=== PATIENT | male | born 1945 ===

== ENCOUNTER 2018-05-09 21:49 | Emergency (ER) | payer MEDICARE | END 2018-05-09 23:48 | disposition home or self-care (01) | LOC: C.ER 21:49 ==

== ENCOUNTER 2018-05-11 11:04 | Emergency (ER) | payer MEDICARE | END 2018-05-11 14:53 | disposition home or self-care (01) | LOC: C.ER 11:04 ==

== ENCOUNTER 2018-05-17 01:26 | Emergency (ER) | payer MEDICARE ==
[2018-05-17 01:26] VITALS: BMI 24.3
--- NOTE | 2018-05-17 01:39 | C.PDOC ---
History Of Present Illness The patient presents to the ED for evaluation of mid-epigastric abdominal pain which began after eating a nithya earlier today. Patient states his last bowel movement was prior to arrival. He denies nausea, vomiting and diarrhea at this time. Time Seen by Provider: 05/17/18 01:38 Chief Complaint (Nursing): Abdominal Pain History Per: Patient History/Exam Limitations: no limitations Onset/Duration Of Symptoms: Hrs Current Symptoms Are (Timing): Still Present Severity: Mild Pain Scale Rating Of: 2 Location Of Pain/Discomfort: Epigastric (mid) Radiation Of Pain To:: None Quality Of Discomfort: "Pain" Associated Symptoms: denies: Nausea, Vomiting, Diarrhea Exacerbating Factors: None Alleviating Factors: None Last Bowel Movement: Today Recent travel outside of the [place]: No Additional History Per: Patient Past Medical History Reviewed: Historical Data, Nursing Documentation, Vital Signs Vital Signs: Last Vital Signs Temp 98.1 F 05/17/18 01:30 Pulse 63 05/17/18 01:30 Resp 20 05/17/18 01:30 BP 149/87 05/17/18 01:30 Pulse Ox 100 05/17/18 01:30 - Medical History PMH: HTN, Hypercholesterolemia, Hypothyroidism Denies: Chronic Kidney Disease Surgical History: CABG, Coronary Stent - [facility] Procedures ENDO RECTUM POLYPECTOMY (05/16/13) ENDOSC POLYPECTOMY OF LG INTEST (05/16/13) ESOPHAGOGASTRODUODENOSCOPY [EGD] W/CLOSED BIOPSY (06/22/13) REPOSITION ILEUM, OPEN APPROACH (11/19/15) Family History: States: Unknown Family Hx - Social History Hx Tobacco Use: No Hx Alcohol Use: No Hx Substance Use: No - Immunization History Hx Tetanus Toxoid Vaccination: No Hx Influenza Vaccination: No Hx Pneumococcal Vaccination: No Review Of Systems Constitutional: Negative for: Fever, Chills Cardiovascular: Negative for: Chest Pain, Palpitations Respiratory: Negative for: Cough, Shortness of Breath Gastrointestinal: Positive for: Abdominal Pain (mid-epigastric ). Negative for: Nausea, Vomiting, Diarrhea Genitourinary: Negative for: Dysuria, Frequency, Hematuria Musculoskeletal: Negative for: Back Pain Skin: Negative for: Rash, Lesions, Jaundice, Bruising Neurological: Negative for: Weakness, Numbness Physical Exam - Physical Exam Appears: Non-toxic, No Acute Distress Skin: Warm, Dry Head: Normacephalic Oral Mucosa: Moist Neck: Supple Chest: Symmetrical, No Deformity, No Tenderness Cardiovascular: Rhythm Regular, No Murmur Respiratory: No Rales, No Rhonchi, No Wheezing Gastrointestinal/Abdominal: Soft, Tenderness (mild, mid-epigastric ), No Guarding, No Rebound Extremity: Normal ROM, Capillary Refill (less than 2 seconds ) Neurological/Psych: Oriented x3 ED Course And Treatment O2 Sat by Pulse Oximetry: 100 (on RA ) Pulse Ox Interpretation: Normal Progress Note: Toradol IVP and Protonix IVP given. Reevaluation Time: 03:39 Reassessment Condition: Improved Disposition Counseled Patient/Family Regarding: Studies Performed, Diagnosis, Need For Followup, Rx Given - Disposition Referrals: Martín Aggarwal DO [[facility]] - Disposition: HOME/ ROUTINE Disposition Time: 01:39 Condition: FAIR Additional Instructions: Please return if symptoms recur Prescriptions: Pantoprazole Sodium [Protonix] 40 mg PO DAILY #15 ect Instructions: Acid Reflux (Gastroesophageal Reflux Disease), Adult (DC) Forms: [employer] (Persian) - Clinical Impression Clinical Impression: GERD (gastroesophageal reflux disease) - Scribe Statement The provider has reviewed the documentation as recorded by the Scribe (Trudy Cary) Provider Attestation: All medical record entries made by the Scribe were at my direction and personally dictated by me. I have reviewed the chart and agree that the record accurately reflects my personal performance of the history, physical exam, medical decision making, and the department course for this patient. I have also personally directed, reviewed, and agree with the discharge instructions and disposition.
[2018-05-17] MEDS ORDERED: Pantoprazole 40 mg EC Tab PO STA (01:58)
[2018-05-17 03:50] VITALS: BP 162/85; PULSE 64; RESP 18; TEMP 97.9; O2SAT 98
== END 2018-05-17 04:11 | disposition home or self-care (01) ==
LOC: C.ER 01:26
DX: K21.9 Gastro-esophageal reflux disease without esophagitis (principal); I10 Essential (primary) hypertension; E78.00 Pure hypercholesterolemia, unspecified; E03.9 Hypothyroidism, unspecified
CPT/HCPCS: 96374; 96375; 99285; C9113; J1885

== ENCOUNTER 2018-05-19 23:19 | Emergency (ER) | payer MEDICARE ==
[2018-05-19 23:19] VITALS: BMI 24.3
--- NOTE | 2018-05-19 23:52 | C.PDOC ---
History Of Present Illness 73 year old male presents stating he drank hot 7up at 9:30pm and since them he has had mild pain to left lower abdomen around the left umbilicus into the LLQ. He has had multiple ED visits for similar symptoms recently. Nothing makes the pain better or worse, he denies nausea, vomiting, diarrhea, fever, back pain, or urinary symptoms. On 05/11/[address] abd/pel that showed diverticulosis w/o diverticulitis and moderate constipation, he had labs done during two prior recent visits which were normal and had obstructive series that showed constipation. Time Seen by Provider: 05/19/18 23:32 Chief Complaint (Nursing): Abdominal Pain History Per: Patient History/Exam Limitations: no limitations Onset/Duration Of Symptoms: Hrs Current Symptoms Are (Timing): Still Present Location Of Pain/Discomfort: LLQ Radiation Of Pain To:: None Quality Of Discomfort: Unable To Describe Associated Symptoms: denies: Fever, Nausea, Vomiting, Diarrhea, Back Pain, Urinary Symptoms Exacerbating Factors: None Alleviating Factors: None Recent travel outside of the [place]: No Additional History Per: Prior Records Past Medical History Reviewed: Historical Data, Nursing Documentation, Vital Signs Vital Signs: Last Vital Signs Temp 98 F 05/19/18 23:21 Pulse 66 05/19/18 23:21 Resp 16 05/19/18 23:21 BP 150/85 05/19/18 23:21 Pulse Ox 100 05/19/18 23:21 - Medical History PMH: HTN, Hypercholesterolemia, Hypothyroidism Denies: Chronic Kidney Disease Surgical History: CABG, Coronary Stent - [facility] Procedures ENDO RECTUM POLYPECTOMY (05/16/13) ENDOSC POLYPECTOMY OF LG INTEST (05/16/13) ESOPHAGOGASTRODUODENOSCOPY [EGD] W/CLOSED BIOPSY (06/22/13) REPOSITION ILEUM, OPEN APPROACH (11/19/15) Family History: States: Unknown Family Hx - Social History Hx Tobacco Use: No Hx Alcohol Use: No Hx Substance Use: No - Immunization History Hx Tetanus Toxoid Vaccination: No Hx Influenza Vaccination: No Hx Pneumococcal Vaccination: No Review Of Systems Constitutional: Negative for: Fever, Chills Cardiovascular: Negative for: Chest Pain, Palpitations Respiratory: Negative for: Cough, Shortness of Breath Gastrointestinal: Positive for: Abdominal Pain. Negative for: Nausea, Vomiting, Diarrhea Genitourinary: Negative for: Dysuria, Hematuria Musculoskeletal: Negative for: Back Pain Skin: Negative for: Rash Physical Exam - Physical Exam Appears: Non-toxic Skin: Normal Color, Warm Head: Atraumatic, Normacephalic Eye(s): bilateral: Normal Inspection Oral Mucosa: Moist Neck: Normal, Supple Chest: Symmetrical, No Tenderness Cardiovascular: Rhythm Regular Respiratory: Normal Breath Sounds, No Rales, No Rhonchi, No Wheezing Gastrointestinal/Abdominal: Soft, No Tenderness, No Mass, No Distention, No Guarding, No Rebound Neurological/Psych: Oriented x3, Normal Speech ED Course And Treatment - Laboratory Results Result Diagrams: 05/19/18 23:57 05/19/18 23:57 Lab Interpretation: No Acute Changes O2 Sat by Pulse Oximetry: 100 (Room air) Pulse Ox Interpretation: Normal Progress Note: Blood work and urinalysis ordered. Reevaluation Time: 00:52 Reassessment Condition: Improved (Patient remains comfortable.) Disposition Counseled Patient/Family Regarding: Studies Performed, Diagnosis, Need For Fol lowup - Disposition Disposition: HOME/ ROUTINE Disposition Time: 00:58 Condition: STABLE Instructions: Stomach Ache and Stomach Upset, [place] Diet Forms: [employer] (Estonian) - Clinical Impression Clinical Impression: Abdominal pain - Scribe Statement The provider has reviewed the documentation as recorded by the Scribsunny Francis All medical record entries made by the Scribe were at my direction and personally dictated by me. I have reviewed the chart and agree that the record accurately reflects my personal performance of the history, physical exam, medical decision making, and the department course for this patient. I have also personally directed, reviewed, and agree with the discharge instructions and disposition.
[2018-05-20] LABS: BASO % 0.8 % (0.0-2.0); EOS # 0.1 K/uL (0.0-0.7); EOS % 2.1 % (0.0-4.0); HEMOGLOBIN 14.4 g/dL (12.0-18.0); LYMPH # 1.1 K/uL (1.0-4.3); LYMPH % 23.5 % (20.0-40.0); MEAN CORPUSCULAR HEMOGLOBIN 33.9 pg (27.0-31.0); MEAN CORPUSCULAR HGB CONC 33.9 g/dL (33.0-37.0); MEAN PLATELET VOLUME 7.7 fL (7.2-11.7); MONO # 0.9 K/uL (0.0-0.8); MONO % 18.8 % (0.0-10.0); NEUT # 2.6 K/uL (1.8-7.0); NEUT % 54.8 % (50.0-75.0); NRBC % 0.1 % (0.0-2.0); RBC 4.24 Mil/uL (4.40-5.90); RED CELL DISTRIBUTION WIDTH 12.7 % (11.5-14.5); WHITE BLOOD COUNT 4.7 K/uL (4.8-10.8)
[2018-05-20 00:17] LABS: ALB/GLOB RATIO 1.7 (1.0-2.1); ALBUMIN 3.9 g/dL (3.5-5.0); ALT/SGPT 19 U/L (21-72); AST/SGOT 28 U/L (17-59); BLOOD UREA NITROGEN 18 mg/dL (9-20); CALCIUM 8.7 mg/dl (8.6-10.4); GFR NON-AFRICAN AMERICAN > 60
[2018-05-20 00:30] LABS: URINE BILIRUBIN NEGATIVE (NEGATIVE); URINE BLOOD NEGATIVE (NEGATIVE); URINE CLARITY Clear (Clear); URINE COLOR Straw (YELLOW); URINE GLUCOSE (UA) NORMAL (Normal); URINE LEUKOCYTE ESTERASE NEG Leu/uL (Negative); URINE PROTEIN NEGATIVE (NEGATIVE); URINE UROBILINOGEN NORMAL mg/dL (0.2-1.0)
[2018-05-20 01:49] VITALS: BP 140/80; PULSE 72; RESP 20; TEMP 98.2; O2SAT 98
== END 2018-05-20 01:47 | disposition home or self-care (01) ==
LOC: C.ER 23:19
DX: R10.32 Left lower quadrant pain (principal); E78.00 Pure hypercholesterolemia, unspecified; E03.9 Hypothyroidism, unspecified; I10 Essential (primary) hypertension

== ENCOUNTER 2018-05-21 23:28 | Emergency (ER) | payer MEDICARE ==
[2018-05-21 23:29] VITALS: BMI 24.3
[2018-05-22] MEDS ORDERED: Alum-Mag Hydrox-Simethicone Susp (30 mL) PO STA (01:52)
[2018-05-22] MEDS ORDERED: Belladonna-Phenobarbital PO STA (01:52)
--- NOTE | 2018-05-22 02:01 | C.PDOC ---
History Of Present Illness 73 year old male presents to the emergency department with complaints of abdominal pain after eating yams, rice, and half of an avocado prior to arrival. Patient states that his stomachache began after eating dinner. Patient denies vomiting, fever, chills, diarrhea, chest pain, and shortness of breath. Of note, patient has been evaluated prior on the , , , and for similar complaints related to stomach pain and diet. Time Seen by Provider: 05/22/18 00:27 Chief Complaint (Nursing): Abdominal Pain History Per: Patient History/Exam Limitations: no limitations Onset/Duration Of Symptoms: Hrs Current Symptoms Are (Timing): Still Present Context: Food Location Of Pain/Discomfort: Diffuse Quality Of Discomfort: Aching, "Pain" Associated Symptoms: denies: Fever, Chills, Nausea, Vomiting, Diarrhea Exacerbating Factors: Food Past Medical History Reviewed: Historical Data, Nursing Documentation, Vital Signs Vital Signs: Last Vital Signs Temp 98.7 F 05/22/18 00:01 Pulse 60 05/22/18 00:01 Resp 16 05/22/18 00:01 BP 137/81 05/22/18 00:01 Pulse Ox 99 05/22/18 00:01 - Medical History PMH: HTN, Hypercholesterolemia, Hypothyroidism Denies: Chronic Kidney Disease Surgical History: CABG, Coronary Stent - [facility] Procedures ENDO RECTUM POLYPECTOMY (05/16/13) ENDOSC POLYPECTOMY OF LG INTEST (05/16/13) ESOPHAGOGASTRODUODENOSCOPY [EGD] W/CLOSED BIOPSY (06/22/13) REPOSITION ILEUM, OPEN APPROACH (11/19/15) Family History: States: No Known Family Hx - Social History Hx Tobacco Use: No Hx Alcohol Use: No Hx Substance Use: No - Immunization History Hx Tetanus Toxoid Vaccination: No Hx Influenza Vaccination: No Hx Pneumococcal Vaccination: No Review Of Systems Except As Marked, All Systems Reviewed And Found Negative. Constitutional: Negative for: Fever, Chills Cardiovascular: Negative for: Chest Pain Respiratory: Negative for: Cough, Shortness of Breath Gastrointestinal: Positive for: Abdominal Pain. Negative for: Nausea, Vomiting, Diarrhea Neurological: Negative for: Weakness, Numbness Physical Exam - Physical Exam Appears: Non-toxic, No Acute Distress Skin: Normal Color, Warm, Dry Head: Atraumatic, Normacephalic Eye(s): bilateral: Normal Inspection, PERRL, EOMI Nose: Normal Oral Mucosa: Moist Neck: Normal, Supple Chest: Symmetrical, No Tenderness Cardiovascular: Rhythm Regular, No Murmur Respiratory: Normal Breath Sounds, No Rales, No Rhonchi, No Wheezing Gastrointestinal/Abdominal: Soft, No Tenderness, No Guarding, No Rebound Extremity: Normal ROM Neurological/Psych: Oriented x3, Normal Speech, Normal Cognition ED Course And Treatment O2 Sat by Pulse Oximetry: 99 (RA) Pulse Ox Interpretation: Normal Medical Decision Making Medical Decision Making: Plan: Atropine 1tab PO Lidocaine 15ml PO Maalox 30ml PO 03:00 Patient reassessed; states he feels better and is ready to go home. Disposition Counseled Patient/Family Regarding: Diagnosis, Need For Followup - Disposition Referrals: Martín Aggarwal DO [[facility]] - Disposition: HOME/ ROUTINE Disposition Time: 03:10 Condition: IMPROVED Additional Instructions: MANNY JAVED, thank you for letting us take care of you today. Your provider was Trinity Laguna MD and you were treated for ABDOMINAL PAIN. The emergency medical care you received today was directed at your acute symptoms. If you were prescribed any medication, please fill it and take as directed. It may take several days for your symptoms to resolve. Return to the Emergency Department if your symptoms worsen, do not improve, or if you have any other problems. Please contact your doctor or call one of the physicians/clinics you have been referred to that are listed on the Patient Visit Information form that is included in your discharge packet. Bring any paperwork you were given at discharge with you along with any medications you are taking to your follow up visit. Our treatment cannot replace ongoing medical care by a primary care provider outside of the emergency department. Thank you for allowing the [facility] team to be part of your care today. Instructions: Stomach Ache and Stomach Upset Forms: [email or web address] (Ukrainian) - POA Present On Arrival: None - Clinical Impression Clinical Impression: Abdominal discomfort - Scribe Statement The provider has reviewed the documentation as recorded by the Scribe (Beka Schmidt) Provider Attestation: All medical record entries made by the Scribe were at my direction and personally dictated by me. I have reviewed the chart and agree that the record accurately reflects my personal performance of the history, physical exam, medical decision making, and the department course for this patient. I have also personally directed, reviewed, and agree with the discharge instructions and disposition.
[2018-05-22] MEDS ORDERED: Aluminum Hydroxide/Magnesium Hydroxide Susp (30 mL) ONE (02:07)
[2018-05-22] MEDS ORDERED: Belladonna-Phenobarbital ONE (02:07)
[2018-05-22 03:25] VITALS: BP 142/82; PULSE 61; RESP 18; TEMP 97.6; O2SAT 95
== END 2018-05-22 03:25 | disposition home or self-care (01) ==
LOC: C.ER 23:28
DX: R10.9 Unspecified abdominal pain (principal)

== ENCOUNTER 2018-05-22 19:07 | Emergency (ER) | payer MEDICARE ==
[2018-05-22 19:07] VITALS: BMI 24.3
[2018-05-22 19:21] VITALS: RESP 16
--- NOTE | 2018-05-22 20:02 | C.PDOC ---
History Of Present Illness 73 year old male with a history of hypertension, high cholesterol, CABG, stent, and hypothyroidism presents to the emergency department with complaints of periumbilical abdominal pain which has been going on intermittently over the p ast 10 days associated with eating. Patient was seen in [facility] on 05-11-[address] he [address] a CT scan that showed umbilical hernia and diverticulosis. Patient notes that his pain feels similar to previous pain, describing it as a throbbing pain. Patient states he took Pepcid this morning which improved the pain but states that the pain returned at 4PM after he ate some yams. Patient then decided to come to the ED to be evaluated. He denies any dark or bloody stool. No fall or trauma. No headache or neck stiffness. No fever, chills or night sweats. No constipation or diarrhea. Time Seen by Provider: 05/22/18 20:02 Chief Complaint (Nursing): Abdominal Pain History Per: Patient History/Exam Limitations: no limitations Onset/Duration Of Symptoms: Hrs (5) Current Symptoms Are (Timing): Still Present Context: Food Location Of Pain/Discomfort: Periumbilical Quality Of Discomfort: "Pain", Other (throbbing) Associated Symptoms: Other (abdominal pain). denies: Fever, Chills, Nausea, Vomiting, Diarrhea Exacerbating Factors: Food Alleviating Factors: OTC Meds (Pepcid) Past Medical History Reviewed: Historical Data, Nursing Documentation, Vital Signs Vital Signs: Last Vital Signs Temp 98.0 F 05/22/18 19:16 Pulse 69 05/22/18 19:16 Resp 16 05/22/18 19:16 BP 138/79 05/22/18 19:16 Pulse Ox 98 05/22/18 19:16 - Medical History PMH: HTN, Hypercholesterolemia, Hypothyroidism Denies: Chronic Kidney Disease Surgical History: CABG, Coronary Stent - [facility] Procedures ENDO RECTUM POLYPECTOMY (05/16/13) ENDOSC POLYPECTOMY OF LG INTEST (05/16/13) ESOPHAGOGASTRODUODENOSCOPY [EGD] W/CLOSED BIOPSY (06/22/13) REPOSITION ILEUM, OPEN APPROACH (11/19/15) Family History: States: No Known Family Hx - Social History Hx Tobacco Use: No Hx Alcohol Use: No Hx Substance Use: No - Immunization History Hx Tetanus Toxoid Vaccination: No Hx Influenza Vaccination: No Hx Pneumococcal Vaccination: No Review Of Systems Constitutional: Negative for: Fever, Chills, Weakness, Malaise, Weight loss Eyes: Negative for: Pain, Vision Change, Conjunctivae Inflammation, Eyelid Inflammation, Redness ENT: Negative for: Ear Pain, Ear Discharge, Nose Pain, Nose Discharge, Nose Congestion, Mouth Pain, Mouth Swelling, Throat Pain Cardiovascular: Negative for: Chest Pain, Palpitations, Orthopnea, Edema, Light Headedness Respiratory: Negative for: Cough, Shortness of Breath, SOB with Excertion, Pleuritic Pain, Sputum Gastrointestinal: Positive for: Abdominal Pain. Negative for: Nausea, Vomiting, Diarrhea, Constipation, Melena, Hematochezia Genitourinary: Negative for: Dysuria, Frequency, Incontinence, Hematuria, Penile Discharge, Scrotal Pain Musculoskeletal: Negative for: Neck Pain, Back Pain Skin: Negative for: Rash, Lesions Neurological: Negative for: Weakness, Numbness Physical Exam - Physical Exam Appears: Well, Non-toxic, No Acute Distress Skin: Normal Color, Warm, Dry Head: Atraumatic, Normacephalic Eye(s): bilateral: Normal Inspection, PERRL, EOMI Nose: Normal Oral Mucosa: Moist Tongue: Normal Appearing Lips: Normal Appearing Throat: Normal, No Erythema, No Exudate, No Drooling, No Mass Neck: Normal, Normal ROM, No Midline Cervical Tenderness, Supple, Other (no meningeal signs) Chest: Symmetrical, No Tenderness Cardiovascular: Rhythm Regular, No Murmur Respiratory: Normal Breath Sounds, No Rales, No Rhonchi, No Wheezing Gastrointestinal/Abdominal: Soft, Tenderness (periumbilical tenderness), Hernia (umbilical hernia, easily reducible) Back: Normal Inspection, No CVA Tenderness Male Genital: Normal Inspection Extremity: Normal ROM Neurological/Psych: Oriented x3, Normal Speech, Normal Cognition Gait: Steady ED Course And Treatment - Laboratory Results Result Diagrams: 05/22/18 21:29 05/22/18 21:29 O2 Sat by Pulse Oximetry: 98 (RA) Pulse Ox Interpretation: Normal Medical Decision Making Medical Decision Makin73 year old male with a history of hypertension, high cholesterol, CABG, stent, and hypothyroidism presents to the emergency department with complaints of periumbilical abdominal pain which has been going on intermittently over the past 10 days associated with eating. Likely recurrent gastritis pain but given recurrent visits will seek CT EK, nsr, no stemi Plan: VBG CT Abdomen and Pelvis CMP Lipase CBC Urinalysis 1231 repeat exam largely unremarkable, abdomen non-ttp labs largely unremarkable CT w/ colitis, mild will rx given recurrent pain informed pt to attempt mild diet of Bread, rice, apples and toast also prescribed abx and gave followup and return indications pt is agreeable to plan. Disposition - Disposition Referrals: Ceasar Moreland MD [Staff Provider] - Royce Hoyos MD [Staff Provider] - [facility] [Outside] [facility] [Outside] [facility] [Outside] Disposition Time: 00:31 Condition: GOOD Additional Instructions: FOLLOW UP WITH A UROLOGISTS AND A STOMACH DOCTOR IN REGARDS TO YOUR COLITIS AND SOME PROSTATE ENLARGEMENT MANNY JAVED, thank you for letting us take care of you today. Your provider was Suresh Salomon and you were treated for ABD PAIN. The emergency medical care you received today was directed at your acute symptoms. If you were prescribed any medication, please fill it and take as directed. It may take several days for your symptoms to resolve. Return to the Emergency Department if your symptoms worsen, do not improve, or if you have any other problems. Please contact your doctor or call one of the physicians/clinics you have been referred to that are listed on the Patient Visit Information form that is included in your discharge packet. Bring any paperwork you were given at discharge with you along with any medications you are taking to your follow up visit. Our treatment cannot replace ongoing medical care by a primary care provider outside of the emergency department. Thank you for allowing the [facility] team to be part of your care today. If you had an X-Ray or CT scan: A Radiologist will review the ED reading if any change in treatment is needed we will contact you. If you had a blood, urine, or wound culture: It will take several days for the results, if any change in treatment is needed we will contact you. If you had an STI test: It will take 48 hours for the results. Please call after 1 week if you have not heard back. Prescriptions: Ciprofloxacin HCl [Cipro] 500 mg PO BID 10 Days #20 tablet Famotidine [Pepcid] 20 mg PO BID PRN 5 Days #10 tab PRN Reason: Dyspepsia metroNIDAZOLE [Flagyl] 500 mg PO Q8H 10 Days #30 tab Instructions: Colitis (DC), Gastritis (DC) Forms: [employer] (Portuguese) - Clinical Impression Clinical Impression: Colitis, Gastritis - Scribe Statement The provider has reviewed the documentation as recorded by the Scribe (Beka Schmidt) Provider Attestation: All medical record entries made by the Scribe were at my direction and personally dictated by me. I have reviewed the chart and agree that the record accurately reflects my personal performance of the history, physical exam, medical decision making, and the department course for this patient. I have also personally directed, reviewed, and agree with the discharge instructions and disposition.
[2018-05-22 21:32] LABS: BASO % 0.6 % (0.0-2.0); EOS # 0.1 K/uL (0.0-0.7); EOS % 1.3 % (0.0-4.0); HEMOGLOBIN 15.2 g/dL (12.0-18.0); LYMPH # 1.2 K/uL (1.0-4.3); LYMPH % 22.2 % (20.0-40.0); MEAN CELL VOLUME 98.2 fL (80.0-94.0); MEAN CORPUSCULAR HEMOGLOBIN 33.4 pg (27.0-31.0); MEAN PLATELET VOLUME 7.6 fL (7.2-11.7); MONO # 0.8 K/uL (0.0-0.8); NEUT # 3.4 K/uL (1.8-7.0); NEUT % 61.9 % (50.0-75.0); NRBC % 0.1 % (0.0-2.0); RBC 4.54 Mil/uL (4.40-5.90); RED CELL DISTRIBUTION WIDTH 12.8 % (11.5-14.5); WHITE BLOOD COUNT 5.5 K/uL (4.8-10.8)
[2018-05-22 21:33] LABS: VENOUS BLOOD GAS BASE EXCESS 3.2 mmol/L (0.0-2.0); VENOUS BLOOD GAS PCO2 53 mmHg (40-60); VENOUS BLOOD GAS PO2 21 mm/Hg (30-55); VENOUS BLOOD PH 7.36 (7.32-7.43)
[2018-05-22] MEDS ORDERED: Iohexol 240 (50 ml) PO ONE (21:33)
[2018-05-22] MEDS ORDERED: Iohexol 240 (50 ml) ONE (21:38)
[2018-05-22 21:40] LABS: URINE BILIRUBIN NEGATIVE (NEGATIVE); URINE BLOOD NEGATIVE (NEGATIVE); URINE CLARITY Clear (Clear); URINE COLOR Straw (YELLOW); URINE GLUCOSE (UA) NORMAL (Normal); URINE LEUKOCYTE ESTERASE NEG Leu/uL (Negative); URINE PROTEIN NEGATIVE (NEGATIVE); URINE UROBILINOGEN NORMAL mg/dL (0.2-1.0)
[2018-05-22 21:44] LABS: ALB/GLOB RATIO 1.8 (1.0-2.1); ALBUMIN 4.3 g/dL (3.5-5.0); ALT/SGPT 20 U/L (21-72); AST/SGOT 27 U/L (17-59); BLOOD UREA NITROGEN 17 mg/dL (9-20); CALCIUM 9.1 mg/dl (8.6-10.4); GFR NON-AFRICAN AMERICAN > 60; LIPASE 53 U/L (23-300)
[2018-05-22 22:08] VITALS: PULSE 60
[2018-05-22] MEDS ORDERED: Iodixanol 320 MG/ML 100 ML BOTTLE IV ONE (23:29)
[2018-05-23 00:09] VITALS: BP 149/85; TEMP 97.9
[2018-05-23 00:28] VITALS: O2SAT 98
--- NOTE | 2018-05-23 16:29 | CT ---
Date of service: 05/22/2018 PROCEDURE: CT Abdomen and Pelvis with contrast HISTORY: periumbilical abd pain, recurrent COMPARISON: 05/11/2018 TECHNIQUE: Contrast dose: 100 mL Visipaque 320 Radiation dose: Total exam DLP = 325.66 mGy-cm. This CT exam was performed using one or more of the following dose reduction techniques: Automated exposure control, adjustment of the mA and/or kV according to patient size, and/or use of iterative reconstruction technique. FINDINGS: LOWER THORAX: Unremarkable. LIVER: Unremarkable. No gross lesion or ductal dilatation. GALLBLADDER AND BILE DUCTS: Unremarkable. PANCREAS: Unremarkable. No gross lesion or ductal dilatation. SPLEEN: Unremarkable. ADRENALS: Unremarkable. No mass. KIDNEYS AND URETERS: Unremarkable. No hydronephrosis. No solid mass. VASCULATURE: Unremarkable. No aortic aneurysm. There is atherosclerotic calcification of the abdominal aorta. BOWEL: Unremarkable. No obstruction. No gross mural thickening. APPENDIX: Not identified. No secondary findings to suggest acute appendicitis. PERITONEUM: Unremarkable. No free fluid. No free air. LYMPH NODES: Unremarkable. No enlarged lymph nodes. BLADDER: Mild diffuse thickening of the bladder wall common nonspecific. This may be due to cystitis or chronic outlet obstruction. REPRODUCTIVE: Mild prostate enlargement. BONES: No acute fracture. OTHER FINDINGS: None. IMPRESSION: No evidence of colitis or enteritis. No evidence of appendicitis. Mild diffuse bladder wall thickening common nonspecific. See above. Mild prostate enlargement. The preliminary findings for this examination were reported by [facility] at 12:15 a.m. on 05/23/2018. There is discordance of this report with the preliminary findings. There is no evidence of mural thickening of the colon on this examination.
--- NOTE | 2018-05-25 01:35 | CARD ---
APPROVED REPORT Date of service: 05/22/2018 EKG Measurement Heart [id number] <Conclusion> Normal sinus rhythm Normal ECG
== END 2018-05-23 00:55 | disposition home or self-care (01) ==
LOC: C.ER 19:07
DX: K52.9 Noninfective gastroenteritis and colitis, unspecified (principal); K29.70 Gastritis, unspecified, without bleeding
CPT/HCPCS: 74177; 80053; 81001; 82803; 83690; 84484; 85025; 93005; 99285; Q9966; Q9967

== ENCOUNTER 2018-06-16 22:25 | Observation (INO) | payer MEDICARE ==
[2018-06-16 22:26] VITALS: BMI 24.3
--- NOTE | 2018-06-16 23:10 | C.PDOC ---
History Of Present Illness 73 year old male presents to the ED c/o mid chest discomfort. Patient reports drinking juice at 16:00 today after which he started having chest discomfort. Patient did not take any medications for his pain. Patient has history of CAD is s/p CABG 11 years ago. Patient also reports having thyroid disease and surgery on his thyroid done in this Hospital couple of years ago. Patient takes aspirin daily and took it today. Patient denies fever, chills, headache, SOB, palpitations, nausea, vomit, diarrhea, weakness, numbness. Time Seen by Provider: 06/16/18 22:43 Chief Complaint (Nursing): Chest Pain History Per: Patient History/Exam Limitations: no limitations Onset/Duration Of Symptoms: Hrs (16:00) Current Symptoms Are (Timing): Still Present Context: Food Quality: Other (discomfort ) Recent travel outside of the [place]: No Additional History Per: Patient Past Medical History Reviewed: Historical Data, Nursing Documentation, Vital Signs Vital Signs: Last Vital Signs Temp 97.9 F 06/16/18 22:32 Pulse 60 06/16/18 22:59 Resp 14 06/16/18 22:32 BP 155/87 H 06/16/18 22:32 Pulse Ox 98 06/16/18 22:32 - Medical History PMH: HTN, Hypercholesterolemia, Hypothyroidism Denies: Chronic Kidney Disease Surgical History: CABG, Coronary Stent - [facility] Procedures ENDO RECTUM POLYPECTOMY (05/16/13) ENDOSC POLYPECTOMY OF LG INTEST (05/16/13) ESOPHAGOGASTRODUODENOSCOPY [EGD] W/CLOSED BIOPSY (06/22/13) REPOSITION ILEUM, OPEN APPROACH (11/19/15) Family History: States: Unknown Family Hx - Social History Hx Tobacco Use: No Hx Alcohol Use: No Hx Substance Use: No - Immunization History Hx Tetanus Toxoid Vaccination: No Hx Influenza Vaccination: No Hx Pneumococcal Vaccination: No Review Of Systems Constitutional: Negative for: Fever, Chills Cardiovascular: Positive for: Chest Pain. Negative for: Palpitations Respiratory: Negative for: Cough, Shortness of Breath Gastrointestinal: Negative for: Nausea, Vomiting, Abdominal Pain Skin: Negative for: Rash Neurological: Negative for: Weakness, Numbness, Headache, Dizziness Physical Exam - Physical Exam Appears: Non-toxic, No Acute Distress Skin: Normal Color, Warm, Dry, No Rash Head: Atraumatic, Normacephalic Eye(s): bilateral: Normal Inspection Neck: Normal ROM, Supple Chest: Symmetrical, No Tenderness Cardiovascular: Rhythm Regular Respiratory: Normal Breath Sounds, No Rales, No Rhonchi, No Wheezing Gastrointestinal/Abdominal: Soft, No Tenderness, No Distention Extremity: Normal ROM, No Tenderness Neurological/Psych: Oriented x3, Normal Speech, Normal Cognition Gait: Steady ED Course And Treatment - Laboratory Results Result Diagrams: 06/16/18 23:13 06/16/18 23:13 Lab Interpretation: No Acute Changes ECG: Interpreted By Tx ECG Rhythm: Sinus Rhythm ECG Interpretation: Normal O2 Sat by Pulse Oximetry: 98 (ON RA) Pulse Ox Interpretation: Normal - Radiology CXR: Interpreted by Tx CXR Interpretation: Yes: No Acute Disease Reevaluation Time: 23:43 Reassessment Condition: Improved (Chest pain resolved after SL NTG) - Physician Consult Information Time Consulting Physician Contacted: 23:45 Physician Contacted: Terence Love Outcome Of Conversation: Patient with history of CABG c/o chest pain. Will admit for cardiac observation. Medical Decision Making Medical Decision Making: Plan: * EKG * Labs * Nitro 0.4 mg SL Disposition - Disposition Disposition: HOSPITALIZED Disposition Time: 23:46 Condition: IMPROVED - POA Present On Arrival: None - Clinical Impression Clinical Impression: Chest pain - Scribe Statement The provider has reviewed the documentation as recorded by the Scribe Salvador Thomas All medical record entries made by the Scribe were at my direction and personally dictated by me. I have reviewed the chart and agree that the record accurately reflects my personal performance of the history, physical exam, medical decision making, and the department course for this patient. I have also personally directed, reviewed, and agree with the discharge instructions and disposition.
[2018-06-16 23:20] LABS: BASO % 0.5 % (0.0-2.0); EOS % 0.9 % (0.0-4.0); HEMOGLOBIN 15.9 g/dL (12.0-18.0); LYMPH # 1.3 K/uL (1.0-4.3); LYMPH % 23.3 % (20.0-40.0); MEAN CORPUSCULAR HEMOGLOBIN 34.1 pg (27.0-31.0); MEAN CORPUSCULAR HGB CONC 34.1 g/dL (33.0-37.0); MEAN PLATELET VOLUME 7.7 fL (7.2-11.7); MONO # 0.6 K/uL (0.0-0.8); MONO % 11.4 % (0.0-10.0); NEUT # 3.5 K/uL (1.8-7.0); NEUT % 63.9 % (50.0-75.0); NRBC % 0.1 % (0.0-2.0); RBC 4.66 Mil/uL (4.40-5.90); RED CELL DISTRIBUTION WIDTH 12.8 % (11.5-14.5); WHITE BLOOD COUNT 5.5 K/uL (4.8-10.8)
[2018-06-16 23:40] LABS: ALB/GLOB RATIO 1.7 (1.0-2.1); ALBUMIN 4.2 g/dL (3.5-5.0); ALT/SGPT 44 U/L (21-72); AST/SGOT 39 U/L (17-59); BLOOD UREA NITROGEN 21 mg/dL (9-20); CALCIUM 9.1 mg/dl (8.6-10.4); GFR NON-AFRICAN AMERICAN > 60
--- NOTE | 2018-06-17 00:31 | CP.PCM.HP ---
<Felicity Ramires - Last Filed: 06/17/18 03:51> History of Present Illness - History of Present Illness History of Present Illness: cc: chest pain Mr. Munoz is a 73 year old [place] M with a PMH of CAD s/p CABG, hypertension, hypothyroidism, and hyperlipidemia who comes to the hospital for sudden onset chest pain for the last 5 hours. He first felt it after he had finished making his meal and just finishing a carrot and sugar beet smoothie. The slightly right of pressure pain grew to 6/10, and slowly went [place]. When he left [place], the pain returned, so he called a cab and came to the hospital. He did take her morning medications, including aspirin and his antihypertensives. Denies fever, chills, headache, SOB, palpitations, nausea, vomit, diarrhea, weakness, numbness. PMH: CAD s/p CABG, HTN, hypothyroidism, HLD Med: Simvastatin, lisinopril, HCTZ, synthroid, carvedilol, ASA All: NKDA PSxHx: CABG 2007, thyroid 2009, inguinal hernia repair 1998 FamHx: HTN on both sides, mother - DM SocHx: denies tobacco, alcohol, illicit drug use. lives by himself, retired loading trucks. Present on Admission - Present on Admission Any Indicators Present on Admission: No Review of Systems - Constitutional Constitutional: absent: Chills, Fever, Headache, Weakness - EENT Eyes: absent: Blurred Vision, Diplopia Ears: absent: Ear Discharge, Tinnitus Nose/Mouth/Throat: absent: Dysphagia, Hoarsness, Sore Throat - Cardiovascular Cardiovascular: absent: Chest Pain, Chest Pain at Rest, Edema, Lightheadedness, Syncope - Respiratory Respiratory: absent: Cough, Dyspnea, Hemoptysis, Wheezing - Gastrointestinal Gastrointestinal: absent: Constipation, Diarrhea, Nausea, Vomiting - Genitourinary Genitourinary: absent: Dysuria, Hematuria - Musculoskeletal Musculoskeletal: absent: Arthralgias, Numbness, Stiffness - Integumentary Integumentary: absent: Bleeding Lesions, Unusual Bruising - Neurological Neurological: absent: Numbness, Headaches, Syncope, Tingling - Psychiatric Psychiatric: absent: Anxiety, Confusion, Panic Attacks - Endocrine Endocrine: absent: Fatigue, Palpitations - Hematologic/Lymphatic Hematologic: absent: Easy Bleeding, Easy Bruising Past Patient History - Infectious Disease Hx of Infectious Diseases: None - Past Medical History & Family History Past Medical History?: Yes - Past Social History Smoking Status: Never Smoked Alcohol: None Drugs: Denies Home Situation {Lives}: Alone - CARDIAC Hx Hypercholesterolemia: Yes Hx Hypertension: Yes - PULMONARY Hx Respiratory Disorders: No - NEUROLOGICAL Hx Neurological Disorder: No - HEENT Hx HEENT Problems: No - RENAL Hx Chronic Kidney Disease: No - ENDOCRINE/METABOLIC Hx Hypothyroidism: Yes - HEMATOLOGICAL/ONCOLOGICAL Hx Blood Disorders: No - INTEGUMENTARY Hx Dermatological Problems: No - MUSCULOSKELETAL/RHEUMATOLOGICAL Hx Musculoskeletal Disorders: No - GASTROINTESTINAL Hx Gastrointestinal Disorders: No - GENITOURINARY/GYNECOLOGICAL Hx Genitourinary Disorders: No - PSYCHIATRIC Hx Substance Use: No - SURGICAL HISTORY Hx Coronary Artery Bypass Graft: Yes Hx Coronary Stent: Yes - ANESTHESIA Hx Anesthesia: Yes Hx Anesthesia Reactions: No Hx Malignant Hyperthermia: No Meds Allergies/Adverse Reactions: Allergies Allergy/AdvReac Type Severity Reaction Status Date / Time No Known Allergies Allergy Verified 06/16/18 22:36 Physical Exam - Constitutional Appears: Well, Toxic - Head Exam Head Exam: ATRAUMATIC, NORMOCEPHALIC - Eye Exam Eye Exam: EOMI, Normal appearance, PERRL Pupil Exam: NORMAL ACCOMODATION - ENT Exam ENT Exam: Mucous Membranes Dry - Neck Exam Neck exam: Positive for: Full Rom, Normal Inspection - Respiratory Exam Respiratory Exam: Clear to Auscultation Bilateral, NORMAL BREATHING PATTERN. absent: Rales, Rhonchi, Wheezes - Cardiovascular Exam Cardiovascular Exam: REGULAR RHYTHM, +S1, +S2. absent: Gallop, Rubs, Systolic Murmur - GI/Abdominal Exam GI & Abdominal Exam: Normal Bowel Sounds, Soft. absent: Tenderness - Extremities Exam Extremities exam: Positive for: normal capillary refill, normal inspection, pedal pulses present - Back Exam Back exam: absent: CVA tenderness (L), CVA tenderness (R) - Neurological Exam Neurological exam: Alert, CN II-XII Intact, Oriented x3, Reflexes Normal - Psychiatric Exam Psychiatric exam: Anxious - Skin Skin Exam: Dry, Intact, Normal Color, Warm Results - Vital Signs Recent Vital Signs: Last Vital Signs Temp 98.4 F 06/17/18 00:27 Pulse 57 L 06/17/18 00:27 Resp 16 04/18/19 00:27 BP 155/82 H 04/18/19 00:27 Pulse Ox 98 06/17/18 00:27 - Labs Result Diagrams: 06/16/18 23:13 06/16/18 23:13 Labs: Laboratory Results - last 24 hr 06/16/18 06/16/18 23:13 23:13 WBC 5.5 RBC 4.66 Hgb 15.9 Hct 46.6 MCV 100.0 H MCH 34.1 H MCHC 34.1 RDW 12.8 Plt Count 160 MPV 7.7 Neut % (Auto) 63.9 Lymph % (Auto) 23.3 [place] % (Auto) 11.4 H Eos % (Auto) 0.9 Baso % (Auto) 0.5 Neut # (Auto) 3.5 Lymph # (Auto) 1.3 [place] # (Auto) 0.6 Eos # (Auto) 0.0 Baso # (Auto) 0.0 Sodium 135 Potassium 4.6 Chloride 99 Carbon Dioxide 31 H Anion Gap 9 L BUN 21 H Creatinine 0.7 L Est GFR ( Amer) > 60 Est GFR (Non-Af Amer) > 60 Random Glucose 134 H Calcium 9.1 Total Bilirubin 0.5 AST 39 ALT 44 Alkaline Phosphatase 69 Troponin I < 0.0120 Total Protein 6.6 Albumin 4.2 Globulin 2.4 Albumin/Globulin Ratio 1.7 Assessment & Plan - Assessment and Plan (Free Text) Assessment: 73yo [place] male PMH CAD s/p CABG, HTN, hypothyroid, HLD admitted for CP r/o ACS. Plan: Chest Pain r/o ACS CXR (06/16): pending read. prelim: neg - Trop neg x1, f/u Trop and EKG x2 - f/u Hgb A1c - f/u lipid panel Hypothyroidism - f/u TSH - home Synthroid 1000mcg po daily CAD s/p CABG Hypertension NTG SL given in ED - home ASA 81mg po daily - home Carvedilol 12.5mg po BID - home Lisinopril 10mg po daily - home HCTZ 12.5mg po daily Hyperlipidemia - home Crestor 10mg po HS PPx - DVT: Heparin 5000u SC q8 - GI: home Pepcid 20mg po BID prn - Diet: HHD d/w Dr. Kate Ramires PGY-1 - Date & Time Date: 06/17/18 Time: 00:15 <Terence Love - Last Filed: 06/17/18 06:35> Results - Vital Signs Recent Vital Signs: Last Vital Signs Temp 98.1 F 06/17/18 04:26 Pulse 64 06/17/18 04:26 Resp 20 06/17/18 04:26 BP 125/81 06/17/18 04:26 Pulse Ox 97 06/17/18 04:26 - Labs Result Diagrams: 06/16/18 23:13 06/16/18 23:13 Labs: Laboratory Results - last 24 hr 06/16/18 06/16/18 23:13 23:13 WBC 5.5 RBC 4.66 Hgb 15.9 Hct 46.6 MCV 100.0 H MCH 34.1 H MCHC 34.1 RDW 12.8 Plt Count 160 MPV 7.7 Neut % (Auto) 63.9 Lymph % (Auto) 23.3 [place] % (Auto) 11.4 H Eos % (Auto) 0.9 Baso % (Auto) 0.5 Neut # (Auto) 3.5 Lymph # (Auto) 1.3 [place] # (Auto) 0.6 Eos # (Auto) 0.0 Baso # (Auto) 0.0 Sodium 135 Potassium 4.6 Chloride 99 Carbon Dioxide 31 H Anion Gap 9 L BUN 21 H Creatinine 0.7 L Est GFR ( Amer) > 60 Est GFR (Non-Af Amer) > 60 Random Glucose 134 H Calcium 9.1 Total Bilirubin 0.5 AST 39 ALT 44 Alkaline Phosphatase 69 Troponin I < 0.0120 Total Protein 6.6 Albumin 4.2 Globulin 2.4 Albumin/Globulin Ratio 1.7 Assessment & Plan - Date & Time Date: 06/17/18 (I have seen and examined the patient. I agree with the findings and plan of care as documented by Dr. Ramires. Patient with chest pain. History of CAD and hypothyroidism. Continue home meds. ROMIx3 with EKG. Aspirin and Statin. Monitor for acute changes.) Time: 06:34 Attending/Attestation - Attestation I have personally seen and examined this patient.: Yes I have fully participated in the care of the patient.: Yes I have reviewed all pertinent clinical information: Yes
[2018-06-17 00:46] VITALS: RESP 20
[2018-06-17] MEDS ORDERED: Levothyroxine 100 MCG TAB PO SCH (06:30)
[2018-06-17 06:42] LABS: BASO % 0.4 % (0.0-2.0); HEMOGLOBIN 15.5 g/dL (12.0-18.0); LYMPH # 1.1 K/uL (1.0-4.3); LYMPH % 23.2 % (20.0-40.0); MEAN CELL VOLUME 98.9 fL (80.0-94.0); MEAN CORPUSCULAR HGB CONC 33.4 g/dL (33.0-37.0); MEAN PLATELET VOLUME 7.6 fL (7.2-11.7); MONO # 0.5 K/uL (0.0-0.8); MONO % 11.2 % (0.0-10.0); NEUT % 64.2 % (50.0-75.0); NRBC % 0.1 % (0.0-2.0); RBC 4.71 Mil/uL (4.40-5.90); RED CELL DISTRIBUTION WIDTH 12.6 % (11.5-14.5); WHITE BLOOD COUNT 4.7 K/uL (4.8-10.8)
[2018-06-17 07:12] LABS: HDL CHOLESTEROL 43 mg/dL (30-70)
[2018-06-17 07:23] LABS: LDL CHOLESTEROL 82 mg/dL (0-129)
--- NOTE | 2018-06-17 07:52 | CP.PCM.PN ---
Objective - Vital Signs/Intake and Output Vital Signs (last 24 hours): Temp Pulse Resp BP Pulse Ox 98.1 F 64 20 125/81 97 06/17/18 04:26 06/17/18 04:26 06/17/18 04:26 06/17/18 04:26 06/17/18 04:26 - Medications Medications: Current Medications Aspirin (Ecotrin) 81 mg PO DAILY [facility] Carvedilol (Coreg) 12.5 mg PO BID [facility] Last Admin: 06/17/18 01:15 Dose: Not Given Famotidine (Pepcid) 20 mg PO BID PRN PRN Reason: Dyspepsia Heparin Sodium (Porcine) (Heparin) 5,000 units SC Q8 [facility] Last Admin: 06/17/18 05:53 Dose: 5,000 units Hydrochlorothiazide (Microzide) 12.5 mg PO DAILY [facility] Levothyroxine Sodium (Synthroid) 100 mcg PO DAILY@0630 [facility] Last Admin: 06/17/18 05:52 Dose: 100 mcg Lisinopril (Zestril) 10 mg PO DAILY [facility] Rosuvastatin Calcium (Crestor) 10 mg PO HS [facility] - Labs Labs: 06/17/18 06:31 06/16/18 23:13
[2018-06-17 08:00] LABS: ALB/GLOB RATIO 1.5 (1.0-2.1); ALBUMIN 3.5 g/dL (3.5-5.0); ALT/SGPT 40 U/L (21-72); AST/SGOT 47 U/L (17-59); BLOOD UREA NITROGEN 16 mg/dL (9-20); CALCIUM 8.9 mg/dl (8.6-10.4); GFR NON-AFRICAN AMERICAN > 60
[2018-06-17 08:05] VITALS: PULSE 56; TEMP 98.3; O2SAT 98
[2018-06-17] MEDS ORDERED: HYDROCHLOROTHIAZIDE PO SCH (10:00)
[2018-06-17] MEDS ORDERED: LISINOPRIL PO SCH (10:00)
--- NOTE | 2018-06-17 10:16 | CP.PCM.CON ---
History of Present Illness - History of Present Illness History of Present Illness: 73 year old male presents to the ED c/o mid chest discomfort. Patient reports drinking juice at 16:00 today after which he started having chest discomfort. - He reports drinking carrot and beet juice and felt achng in r. upper abdomne and central chest 'not to bad, but i was worried' no associated diaphoresis, N/V. No fevers or chills. 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 Patient did not take any medications for his pain. Patient has history of CAD is s/p CABG 11 years ago. Patient also reports having thyroid disease and surgery on his thyroid done in this Hospital couple of years ago. Patient takes aspirin daily and took it today. Patient denies fever, chills, headache, SOB, palpitations, nausea, vomit, diarrhea, weakness, numbness. Cardiac Hx: CABG 3 vessel CAD 2007 [place] Normal LVEF by outpatient echo HTN chronic stable Lipids chronic stable, LDL was 58 04/2017 Non smoker Review of Systems - Review of Systems All systems: reviewed and no additional remarkable complaints except Past Patient History - Infectious Disease Hx of Infectious Diseases: None - Past Medical History & Family History Past Medical History?: Yes - Past Social History Smoking Status: Never Smoked Alcohol: None Drugs: Denies Home Situation {Lives}: Alone - CARDIAC Hx Hypercholesterolemia: Yes Hx Hypertension: Yes - PULMONARY Hx Respiratory Disorders: No - NEUROLOGICAL Hx Neurological Disorder: No - HEENT Hx HEENT Problems: No - RENAL Hx Chronic Kidney Disease: No - ENDOCRINE/METABOLIC Hx Hypothyroidism: Yes - HEMATOLOGICAL/ONCOLOGICAL Hx Blood Disorders: No - INTEGUMENTARY Hx Dermatological Problems: No - MUSCULOSKELETAL/RHEUMATOLOGICAL Hx Musculoskeletal Disorders: No - GASTROINTESTINAL Hx Gastrointestinal Disorders: No - GENITOURINARY/GYNECOLOGICAL Hx Genitourinary Disorders: No - PSYCHIATRIC Hx Substance Use: No - SURGICAL HISTORY Hx Coronary Artery Bypass Graft: Yes Hx Coronary Stent: Yes - ANESTHESIA Hx Anesthesia: Yes Hx Anesthesia Reactions: No Hx Malignant Hyperthermia: No Meds Allergies/Adverse Reactions: Allergies Allergy/AdvReac Type Severity Reaction Status Date / Time No Known Allergies Allergy Verified 06/16/18 22:36 - Medications Medications: Current Medications Aspirin (Ecotrin) 81 mg PO DAILY [facility] Carvedilol (Coreg) 12.5 mg PO BID [facility] Last Admin: 06/17/18 01:15 Dose: Not Given Famotidine (Pepcid) 20 mg PO BID PRN PRN Reason: Dyspepsia Heparin Sodium (Porcine) (Heparin) 5,000 units SC Q8 [facility] Last Admin: 06/17/18 05:53 Dose: 5,000 units Hydrochlorothiazide (Microzide) 12.5 mg PO DAILY [facility] Levothyroxine Sodium (Synthroid) 100 mcg PO DAILY@0630 [facility] Last Admin: 06/17/18 05:52 Dose: 100 mcg Lisinopril (Zestril) 10 mg PO DAILY [facility] Rosuvastatin Calcium (Crestor) 10 mg PO HS [facility] Physical Exam - Constitutional Appears: No Acute Distress - Head Exam Head Exam: ATRAUMATIC, NORMAL INSPECTION - Eye Exam Eye Exam: EOMI, Normal appearance - ENT Exam ENT Exam: Mucous Membranes Moist, Normal Oropharynx - Neck Exam Neck exam: Positive for: Normal Inspection - Respiratory Exam Respiratory Exam: Clear to Auscultation Bilateral, NORMAL BREATHING PATTERN. absent: Rhonchi, Wheezes - Cardiovascular Exam Cardiovascular Exam: REGULAR RHYTHM, +S1, +S2. absent: JVD (Healed midsternotomy scar), Systolic Murmur - GI/Abdominal Exam GI & Abdominal Exam: Normal Bowel Sounds, Soft. absent: Tenderness - Exam Exam: absent: NORMAL INSPECTION (c/o hernia B/L inguinal) - Extremities Exam Extremities exam: Positive for: pedal edema (chronic ankle edema mild ) - Neurological Exam Neurological exam: Alert, Oriented x3 - Psychiatric Exam Psychiatric exam: Normal Affect, Normal Mood - Skin Skin Exam: Normal Color, Warm Results - Vital Signs Recent Vital Signs: Last Vital Signs Temp 98.3 F 06/17/18 08:04 Pulse 56 L 06/17/18 08:04 Resp 20 06/17/18 08:04 BP 146/92 H 06/17/18 08:04 Pulse Ox 98 06/17/18 08:59 - Labs Result Diagrams: 06/17/18 06:31 06/17/18 06:31 Labs: Laboratory Results - last 24 hr 06/16/18 06/16/18 06/17/18 23:13 23:13 06:31 WBC 5.5 4.7 L RBC 4.66 4.71 Hgb 15.9 15.5 Hct 46.6 46.6 MCV 100.0 H 98.9 H MCH 34.1 H 33.0 H MCHC 34.1 33.4 RDW 12.8 12.6 Plt Count 160 159 MPV 7.7 7.6 Neut % (Auto) 63.9 64.2 Lymph % (Auto) 23.3 23.2 [place] % (Auto) 11.4 H 11.2 H Eos % (Auto) 0.9 1.0 Baso % (Auto) 0.5 0.4 Neut # (Auto) 3.5 3.0 Lymph # (Auto) 1.3 1.1 [place] # (Auto) 0.6 0.5 Eos # (Auto) 0.0 0.0 Baso # (Auto) 0.0 0.0 Sodium 135 Potassium 4.6 Chloride 99 Carbon Dioxide 31 H Anion Gap 9 L BUN 21 H Creatinine 0.7 L Est GFR ( Amer) > 60 Est GFR (Non-Af Amer) > 60 Random Glucose 134 H Hemoglobin A1c Calcium 9.1 Total Bilirubin 0.5 AST 39 ALT 44 Alkaline Phosphatase 69 Troponin I < 0.0120 Total Protein 6.6 Albumin 4.2 Globulin 2.4 Albumin/Globulin Ratio 1.7 Triglycerides Cholesterol LDL Cholesterol Direct HDL Cholesterol TSH 3rd Generation 06/17/18 06/17/18 06/17/18 06:31 06:31 06:31 WBC RBC Hgb Hct MCV MCH MCHC RDW Plt Count MPV Neut % (Auto) Lymph % (Auto) [place] % (Auto) Eos % (Auto) Baso % (Auto) Neut # (Auto) Lymph # (Auto) [place] # (Auto) Eos # (Auto) Baso # (Auto) Sodium 136 Potassium 4.1 Chloride 104 Carbon Dioxide 29 Anion Gap 7 L BUN 16 Creatinine 0.6 L Est GFR ( Amer) > 60 Est GFR (Non-Af Amer) > 60 Random Glucose 88 D Hemoglobin A1c 5.6 Calcium 8.9 Total Bilirubin 0.6 AST 47 ALT 40 Alkaline Phosphatase 55 Troponin I Total Protein 5.8 L Albumin 3.5 Globulin 2.3 Albumin/Globulin Ratio 1.5 Triglycerides 54 D Cholesterol 120 LDL Cholesterol Direct 82 HDL Cholesterol 43 TSH 3rd Generation 0.32 L 06/17/18 06:31 WBC RBC Hgb Hct MCV MCH MCHC RDW Plt Count MPV Neut % (Auto) Lymph % (Auto) [place] % (Auto) Eos % (Auto) Baso % (Auto) Neut # (Auto) Lymph # (Auto) [place] # (Auto) Eos # (Auto) Baso # (Auto) Sodium Potassium Chloride Carbon Dioxide Anion Gap BUN Creatinine Est GFR ( Amer) Est GFR (Non-Af Amer) Random Glucose Hemoglobin A1c Calcium Total Bilirubin AST ALT Alkaline Phosphatase Troponin I < 0.0120 Total Protein Albumin Globulin Albumin/Globulin Ratio Triglycerides Cholesterol LDL Cholesterol Direct HDL Cholesterol TSH 3rd Generation - EKG Data EKG Interpreted by: Myself Assessment & Plan - Assessment and Plan (Free Text) Assessment: Images directly viewed by me: > EKG x2 : Normal > CXR normal cardiac size, sternal wires, no infiltrate or effusion > Trop x2 negative > Normal creat > Normal A1c > BP mild Impression: Non cardiac; atypical chest pain: hx of CABG 2007 with known normal LVEF No objective evidence on diagnostics or exam to suggest progressive CAD or ACS Meds are optimal: ASA, crestor, coreg, zestril Advised f/u with me as outpatient to re-eval and consider additional testing c/o b/l hernia inguinal sx's HTN: mild cont same RX and monitor need to increase RX as outpatient LIPIDS: cont statin therapy - Date & Time Date: 06/17/18 Time: 10:24
[2018-06-17 10:35] VITALS: BP 137/82
--- NOTE | 2018-06-17 11:39 | RAD ---
HISTORY: chest pain COMPARISON: Chest x-ray performed 11/17/15 TECHNIQUE: Chest, one view. FINDINGS: LUNGS: No focal consolidation. Please note that chest x-ray has limited sensitivity for the detection of pulmonary masses. PLEURA: No significant pleural effusion identified. No definite pneumothorax . CARDIOVASCULAR: Median sternotomy wires with evidence of CABG. Prominent mediastinum. Ectatic aorta. Heart size appears top normal. OSSEOUS STRUCTURES: Acromioclavicular arthropathy. VISUALIZED UPPER ABDOMEN: Unremarkable. OTHER FINDINGS: None. IMPRESSION: No focal consolidation. Median sternotomy wires with evidence of CABG. Prominent mediastinum. Ectatic aorta. Heart size appears top normal.
--- NOTE | 2018-06-17 13:12 | CP.PCM.DIS ---
Provider - Provider Date of Admission: 06/16/18 23:46 Attending physician: Terence Love MD Consults: 06/17/18 08:07 Cardiology Consult Routine Comment: Atypical Chest Pain.EKG unchanged.TropNegx2.CAD Consulting Provider: Corey Crowder Consulting Physician: Corey Crowder Reason for Consult: Atypical Chest Pain.EKG unchanged.TropNegx2.CAD Time Spent in preparation of Discharge (in minutes): 35 Diagnosis - Discharge Diagnosis (1) Chest pain Status: Acute Hospital Course - Lab Results Lab Results: Most Recent Lab Values WBC 4.7 K/uL (4.8-10.8) L 06/17/18 06:31 RBC 4.71 Mil/uL (4.40-5.90) 06/17/18 06:31 Hgb 15.5 g/dL (12.0-18.0) 06/17/18 06:31 Hct 46.6 % (35.0-51.0) 06/17/18 06:31 MCV 98.9 fL (80.0-94.0) H 06/17/18 06:31 MCH 33.0 pg (27.0-31.0) H 06/17/18 06:31 MCHC 33.4 g/dL (33.0-37.0) 06/17/18 06:31 RDW 12.6 % (11.5-14.5) 06/17/18 06:31 Plt Count 159 K/uL (130-400) 06/17/18 06:31 MPV 7.6 fL (7.2-11.7) 06/17/18 06:31 Neut % (Auto) 64.2 % (50.0-75.0) 06/17/18 06:31 Lymph % (Auto) 23.2 % (20.0-40.0) 06/17/18 06:31 Grand % (Auto) 11.2 % (0.0-10.0) H 06/17/18 06:31 Eos % (Auto) 1.0 % (0.0-4.0) 06/17/18 06:31 Baso % (Auto) 0.4 % (0.0-2.0) 06/17/18 06:31 Neut # (Auto) 3.0 K/uL (1.8-7.0) 06/17/18 06:31 Lymph # (Auto) 1.1 K/uL (1.0-4.3) 06/17/18 06:31 Grand # (Auto) 0.5 K/uL (0.0-0.8) 06/17/18 06:31 Eos # (Auto) 0.0 K/uL (0.0-0.7) 06/17/18 06:31 Baso # (Auto) 0.0 K/uL (0.0-0.2) 06/17/18 06:31 Sodium 136 mmol/L (132-148) 06/17/18 06:31 Potassium 4.1 mmol/L (3.6-5.2) 06/17/18 06:31 Chloride 104 mmol/L (98-107) 06/17/18 06:31 Carbon Dioxide 29 mmol/L (22-30) 06/17/18 06:31 Anion Gap 7 (10-20) L 06/17/18 06:31 BUN 16 mg/dL (9-20) 06/17/18 06:31 Creatinine 0.6 mg/dL (0.8-1.5) L 06/17/18 06:31 Est GFR ( Amer) > 60 06/17/18 06:31 Est GFR (Non-Af Amer) > 60 06/17/18 06:31 Random Glucose 88 mg/dL (75-110) D 06/17/18 06:31 Hemoglobin A1c 5.6 % (4.2-6.5) 06/17/18 06:31 Calcium 8.9 mg/dl (8.6-10.4) 06/17/18 06:31 Total Bilirubin 0.6 mg/dL (0.2-1.3) 06/17/18 06:31 AST 47 U/L (17-59) 06/17/18 06:31 ALT 40 U/L (21-72) 06/17/18 06:31 Alkaline Phosphatase 55 U/L (38-126) 06/17/18 06:31 Troponin I < 0.0120 ng/mL (0.00-0.120) 06/17/18 10:58 Total Protein 5.8 g/dL (6.3-8.3) L 06/17/18 06:31 Albumin 3.5 g/dL (3.5-5.0) 06/17/18 06:31 Globulin 2.3 gm/dL (2.2-3.9) 06/17/18 06:31 Albumin/Globulin Ratio 1.5 (1.0-2.1) 06/17/18 06:31 Triglycerides 54 mg/dL (0-149) D 06/17/18 06:31 Cholesterol 120 mg/dL (0-199) 06/17/18 06:31 LDL Cholesterol Direct 82 mg/dL (0-129) 06/17/18 06:31 HDL Cholesterol 43 mg/dL (30-70) 06/17/18 06:31 TSH 3rd Generation 0.32 mIU/L (0.46-4.68) L 06/17/18 06:31 - Hospital Course Hospital Course: on admission: Mr. Munoz is a 73 year old Green[place] M with a PMH of CAD s/p CABG, hypertension, hypothyroidism, and hyperlipidemia who comes to the hospital for sudden onset chest pain for the last 5 hours. He first felt it after he had finished making his meal and just finishing a carrot and sugar beet smoothie. The slightly right of pressure pain grew to 6/10, and slowly went away as he was in [place]. When he left baptism, the pain returned, so he called a cab and came to the hospital. He did take her morning medications, including aspirin and his antihypertensives. Denies fever, chills, headache, SOB, palpitations, nausea, vomit, diarrhea, weakness, numbness. Hospital Course: Patient admitted for atypical chest pain. Troponins were trended and were negative x3. EKGx showed no acute ST changed. Lipid panel was WNL. Hgb A1c was 5.6. TSH found to be low at 0.34- patient to follow up with their primary care physician and have Synthroid dose adjusted. Discharge instructions: Patient is stable for discharge. You are to follow up with Dr. Page within one week of discharge. You must also follow up with Dr. Khan within one week for continuation of your care. Patient has confirmed that he has sufficient refills at home. You will continue your home medication: Simvastatin 40mg once daily Lisinopril-HCTZ 10-12.5 one tablet once daily Synthroid 0.1mg PO daily Pepcid 20mg PO BID PRN Carvedilol 12.5 daily twice per day Aspirin 81mg once daily Return to the Emergency Room for new or worsening symptoms. Discharge Exam - Head Exam Head Exam: ATRAUMATIC, NORMAL INSPECTION - Additional Findings Additional findings: - Constitutional Appears: Well, Toxic - Head Exam Head Exam: ATRAUMATIC, NORMOCEPHALIC - Eye Exam Eye Exam: EOMI, Normal appearance, PERRL Pupil Exam: NORMAL ACCOMODATION - Neck Exam Neck exam: Positive for: Full Rom, Normal Inspection - Respiratory Exam Respiratory Exam: Clear to Auscultation Bilateral, NORMAL BREATHING PATTERN. absent: Rales, Rhonchi, Wheezes - Cardiovascular Exam Cardiovascular Exam: REGULAR RHYTHM, +S1, +S2. absent: Gallop, Rubs, Systolic Murmur + sternotomy scar - GI/Abdominal Exam GI & Abdominal Exam: Normal Bowel Sounds, Soft. absent: Tenderness - Extremities Exam Extremities exam: Positive for: normal capillary refill, normal inspection, pedal pulses present - Neurological Exam Neurological exam: Alert, CN II-XII Intact, Oriented x3 - Skin Skin Exam: Dry, Intact, Normal Color, Warm Discharge Plan - Follow Up Plan Condition: IMPROVED Disposition: HOME/ ROUTINE Instructions: Heart Healthy Diet, Chest Pain (DC) Additional Instructions: Patient is stable for discharge. You are to follow up with Dr. Page within one week of discharge. You must also follow up with Dr. Khan within one week for continuation of your care. Patient has confirmed that he has sufficient refills at home. You will continue your home medication: Simvastatin 40mg once daily Lisinopril-HCTZ 10-12.5 one tablet once daily Synthroid 0.1mg PO daily Pepcid 20mg PO BID PRN Carvedilol 12.5 daily twice per day Aspirin 81mg once daily Return to the Emergency Room for new or worsening symptoms. El paciente es estable para la descarga. Usted debe hacer un seguimiento con el Dr. Page dentro de byron semana de kelsey. Tambin debe hacer un seguimiento con el Dr. Khan en el plazo de byron semana para continuar con khan atencin. El paciente james confirmado que tiene suficientes recargas en casa. Usted continuar con khan medicacin para el hogar: Simvastatina 40mg byron vez al da Lisinopril-HCTZ 10-12.5 un comprimido byron vez al da Synthroid 0.1 mg PO diariamente Pepcid 20mg PO BID PRN Carvedilol 12,5 diariamente dos veces al da Aspirina 81mg byron vez al da Regrese a la lizbeth de emergencias para princess si hay sntomas nuevos o empeoramiento. Referrals: Martín Aggarwal, [Doctor Oste[facility]] -
--- NOTE | 2018-06-17 23:49 | CARD ---
APPROVED REPORT Date of service: 06/16/2018 EKG Measurement Heart [id number] <Conclusion> Normal sinus rhythm Normal ECG
--- NOTE | 2018-06-18 23:39 | CARD ---
APPROVED REPORT Date of service: 06/17/2018 EKG Measurement Heart [id number] <Conclusion> Sinus bradycardia Otherwise normal ECG
--- NOTE | 2018-06-18 23:48 | CARD ---
APPROVED REPORT Date of service: 06/17/2018 EKG Measurement Heart [id number] <Conclusion> Normal sinus rhythm Normal ECG
== END 2018-06-17 16:13 | disposition home or self-care (01) ==
LOC: C.ER 22:25 → C.6T 23:46
PROVIDERS: ADMIT Family Medicine; ATTEND Family Medicine
DX: R07.89 Other chest pain (principal); E03.9 Hypothyroidism, unspecified; I10 Essential (primary) hypertension; I25.10 Atherosclerotic heart disease of native coronary artery without angina pectoris; Z95.1 Presence of aortocoronary bypass graft; Z95.5 Presence of coronary angioplasty implant and graft; E78.5 Hyperlipidemia, unspecified; E78.00 Pure hypercholesterolemia, unspecified; Z79.82 Long term (current) use of aspirin; Z83.3 Family history of diabetes mellitus
CPT/HCPCS: 36415; 71045; 80053; 80061; 83036; 84443; 84484; 85025; 93005; G0378; J1644

== ENCOUNTER 2018-06-30 22:52 | Emergency (ER) | payer MEDICARE ==
[2018-06-30 22:52] VITALS: BMI 24.3
[2018-06-30 23:05] VITALS: TEMP 97.8
--- NOTE | 2018-06-30 23:07 | C.PDOC ---
History Of Present Illness Patient presents with chest pain which started at noon, NO f/c/n/v. Pt was seen and evaluated on 06/16 - neg work up. Pt speaking in complete sentences. Time Seen by Provider: 06/30/18 23:07 Chief Complaint (Nursing): Chest Pain History Per: Patient History/Exam Limitations: no limitations Onset/Duration Of Symptoms: Hrs Current Symptoms Are (Timing): Still Present Context: Other Severity: Mild Pain Scale Rating Of: 3 Quality: Dull, Tightness, Pressure Associated Symptoms: denies: Nausea, Dyspnea Modifying Factors: None Exacerbating Factors: None Alleviating Factors: None Recent travel outside of the [place]: No Additional History Per: Patient Past Medical History Reviewed: Historical Data, Nursing Documentation, Vital Signs Vital Signs: Last Vital Signs Temp 97.8 F 06/30/18 23:05 Pulse 66 06/30/18 23:05 Resp 22 06/30/18 23:05 BP 142/84 06/30/18 23:05 Pulse Ox 99 06/30/18 23:05 Primary Care Provider: Martín Morgan Medical History PMH: HTN, Hypercholesterolemia, Hypothyroidism Denies: Chronic Kidney Disease Surgical History: CABG, Coronary Stent - [facility] Procedures ENDO RECTUM POLYPECTOMY (05/16/13) ENDOSC POLYPECTOMY OF LG INTEST (05/16/13) ESOPHAGOGASTRODUODENOSCOPY [EGD] W/CLOSED BIOPSY (06/22/13) REPOSITION ILEUM, OPEN APPROACH (11/19/15) Family History: States: Unknown Family Hx - Social History Hx Tobacco Use: No Hx Alcohol Use: No Hx Substance Use: No - Immunization History Hx Tetanus Toxoid Vaccination: No Hx Influenza Vaccination: No Hx Pneumococcal Vaccination: No Review Of Systems Constitutional: Negative for: Fever, Chills ENT: Negative for: Throat Pain Cardiovascular: Positive for: Chest Pain Respiratory: Negative for: Shortness of Breath Gastrointestinal: Negative for: Nausea, Vomiting, Abdominal Pain Genitourinary: Negative for: Dysuria Musculoskeletal: Negative for: Back Pain Skin: Negative for: Rash Neurological: Negative for: Weakness Psych: Negative for: Anxiety Physical Exam - Physical Exam Appears: Non-toxic, No Acute Distress Skin: Warm, Dry Head: Normacephalic Eye(s): bilateral: Normal Inspection Oral Mucosa: Moist Neck: Supple Chest: Symmetrical Cardiovascular: Rhythm Regular Respiratory: No Rales, No Rhonchi, No Wheezing Gastrointestinal/Abdominal: Soft, No Tenderness, No Distention Back: No CVA Tenderness Extremity: Normal ROM Extremity: Bilateral: Atraumatic Pulses: Left Dorsalis Pedis: Normal, Right Dorsalis Pedis: Normal Neurological/Psych: Oriented x3 Gait: Steady ED Course And Treatment - Laboratory Results Result Diagrams: 06/30/18 23:09 06/30/18 23:09 ECG: Interpreted By Me, Viewed By Me ECG Rhythm: Sinus Rhythm (66), Nonspecific Changes O2 Sat by Pulse Oximetry: 99 Pulse Ox Interpretation: Normal - Radiology CXR: Interpreted by Me, Viewed By Me CXR Interpretation: No: Infiltrates, Fracture, Pnemothorax Progress Note: 3:50 am pt has been chest pain free. wants to gohome. Convinced to get 3rd set of enzymes Medical Decision Making Medical Decision Making: I considered the following diagnoses: acute coronary syndrome, pulmonary embolism, lower respiratory infection, aortic dissection/aneurysm, pneumothorax, pericarditis, esophagitis/GERD, zoster and esophageal rupture but found them to be unlikely based on the history, physical exam, and diagnostics. My conclusions regarding the unlikely diagnoses were based on: the absence of significant EKG abnormalities, the lack of suggestive x-ray findings, the absence of significant abnormalities on cardiac monitoring, the absence of asymmetric pulses. Pt has been chest pain free the entire visit. wants to go home Upon provider reevaluation patient is feeling better, is medically stable, and requires no further treatment in the ED at this time. Patient will be discharged home . Counseling was provided and all questions were answered regarding diagnosis and need for follow up with dr morgan and programming engineer. There is agreement to discharge plan. Return if symptoms persist or worsen. Disposition Counseled Patient/Family Regarding: Studies Performed, Diagnosis, Need For Followup - Disposition Referrals: Martín Morgan DO [Doctor Osteopathy] - Corey Crowder MD [Staff Provider] - Disposition: HOME/ ROUTINE Disposition Time: 23:07 Condition: FAIR Additional Instructions: Please return if symptoms recur Instructions: Chest Pain (DC) Forms: [employer] (Greenlandic) - Clinical Impression Clinical Impression: Atypical chest pain
[2018-06-30] MEDS ORDERED: Aspirin 325 mg EC Tablets PO STA (23:09)
[2018-06-30 23:23] VITALS: RESP 14
[2018-06-30] MEDS ORDERED: Aspirin 325 mg EC Tablets PO ONE (23:28)
[2018-06-30 23:30] LABS: BASO % 0.2 % (0.0-2.0); EOS # 0.1 K/uL (0.0-0.7); EOS % 1.1 % (0.0-4.0); HEMOGLOBIN 14.7 g/dL (12.0-18.0); LYMPH # 1.3 K/uL (1.0-4.3); LYMPH % 26.8 % (20.0-40.0); MEAN CELL VOLUME 98.3 fL (80.0-94.0); MEAN CORPUSCULAR HEMOGLOBIN 33.2 pg (27.0-31.0); MEAN CORPUSCULAR HGB CONC 33.8 g/dL (33.0-37.0); MEAN PLATELET VOLUME 7.2 fL (7.2-11.7); MONO # 0.7 K/uL (0.0-0.8); MONO % 15.1 % (0.0-10.0); NEUT # 2.8 K/uL (1.8-7.0); NEUT % 56.8 % (50.0-75.0); RBC 4.42 Mil/uL (4.40-5.90); WHITE BLOOD COUNT 4.9 K/uL (4.8-10.8)
[2018-06-30 23:32] LABS: INR 1.1; PROTHROMBIN TIME 12.2 SECONDS (9.7-12.2)
[2018-06-30 23:36] LABS: ALB/GLOB RATIO 1.5 (1.0-2.1); ALBUMIN 3.8 g/dL (3.5-5.0); ALT/SGPT 29 U/L (21-72); AST/SGOT 32 U/L (17-59); BLOOD UREA NITROGEN 18 mg/dL (9-20); CALCIUM 8.8 mg/dl (8.6-10.4); GFR NON-AFRICAN AMERICAN > 60; LIPASE 52 U/L (23-300)
[2018-06-30 23:48] VITALS: O2SAT 99
[2018-07-01 00:49] LABS: URINE BILIRUBIN NEGATIVE (NEGATIVE); URINE BLOOD NEGATIVE (NEGATIVE); URINE CLARITY Clear (Clear); URINE COLOR Straw (YELLOW); URINE GLUCOSE (UA) NORMAL (Normal); URINE LEUKOCYTE ESTERASE NEG Leu/uL (Negative); URINE PROTEIN NEGATIVE (NEGATIVE); URINE UROBILINOGEN NORMAL mg/dL (0.2-1.0)
[2018-07-01 06:08] VITALS: BP 120/80; PULSE 65
--- NOTE | 2018-07-01 11:02 | RAD ---
Chest x-ray single frontal view HISTORY: Chest pain. COMPARISON: 06/16/2018 FINDINGS: Mild venous congestion. Mild linear atelectasis at the left lung base. Status post median sternotomy CABG. Tortuous aorta. Degenerative changes in the spine and shoulders. Impression: Mild venous congestion. Mild linear atelectasis at the left lung base. Status post median sternotomy CABG. Tortuous aorta. Degenerative changes in the spine and shoulders.
--- NOTE | 2018-07-01 11:10 | CARD ---
APPROVED REPORT Date of service: 06/30/2018 EKG Measurement Heart [id number] <Conclusion> Normal sinus rhythm Normal ECG
== END 2018-07-01 06:23 | disposition home or self-care (01) ==
LOC: C.ER 22:52
DX: R07.89 Other chest pain (principal)

== ENCOUNTER 2018-07-19 09:10 | Outpatient (CLI) | payer MEDICARE | END 2018-07-19 09:11 | disposition home or self-care (01) | LOC: C.PAT 09:10 | DX: K40.90 Unilateral inguinal hernia, without obstruction or gangrene, not specified as recurrent (principal) ==

== ENCOUNTER 2018-07-28 09:59 | Observation (INO) | payer MEDICARE ==
[2018-07-28 10:48] VITALS: BMI 21.0
[2018-07-28] MEDS ORDERED: ceFAZolin 1 gm in NS 2 GM/200 ML BAG IVPB ONE (10:55)
[2018-07-28] MEDS ORDERED: Rocuronium 10 mg/ml (5 ml) ONE (12:22)
[2018-07-28] MEDS ORDERED: Succinylcholine Chloride 20 mg/ml Syr (5 ml) IV ONE (12:22)
[2018-07-28] MEDS ORDERED: Midazolam 2 MG/2 ML VIAL ONE (12:23)
[2018-07-28] MEDS ORDERED: Etomidate 20 mg/10ml Inj IV ONE (12:23)
[2018-07-28] MEDS ORDERED: ePHEDrine 50 mg/ml Inj ONE (12:40)
[2018-07-28] MEDS: Bupivacaine Liposomal Inj 20 ml INFIL ONE ×2 (12:41→14:45)
[2018-07-28] MEDS: Lidocaine/Epinephrine 1% 1:100000 10 ML IJ ONE ×2 (12:41→12:47)
[2018-07-28] MEDS: Bupivacaine HCl 0.25% PF (10 ml) Inj ONE ×2 (12:41→12:47)
[2018-07-28] MEDS: Sodium Chloride 0.9% 40 ML IV ONE ×2 (13:08→14:45)
[2018-07-28] MEDS ORDERED: Neostigmine 1:1000 (1 mg/ml) Inj ONE (14:41)
[2018-07-28] MEDS ORDERED: Dexamethasone 4 mg/1 ml IVP PRN (14:44)
--- NOTE | 2018-07-28 15:18 | PCM.SURG1 ---
Surgeon's Initial Post Op Note - Surgeon's Notes Surgeon: Dr. Bailey Inhalation Therapy Aides Teacher: Cathryn PGY2; Krysta THORPEA Type of Anesthesia: General Endo, Block Regional, Local Anesthesia Administered By: Danyell Jordan CRNA Pre-Operative Diagnosis: bilateral direct inguinal hernias, umbilical hernia Operative Findings: see operative report Post-Operative Diagnosis: Same Operation Performed: Robot-assisted bilateral inguinal hernia repair with mesh. Open umbilical hernia repair with primary closure. Transversus Abdominus Plane Block Specimen/Specimens Removed: Cord Lipoma, Umbilical Hernia Estimated Blood Loss: EBL {In ML}: 10 Blood Products Given: N/A Drains Used: No Drains Post-Op Condition: Good Date of Surgery/Procedure: 07/28/18 Time of Surgery/Procedure: 15:18
[2018-07-28] MEDS: HYDROmorphone 0.5 mg/0.5 ml ISec IVP PRN ×3 (15:38→16:16)
[2018-07-28] MEDS ORDERED: Lactated Ringer's 500 ML IV ONE (19:30)
[2018-07-28] MEDS: Oxycodone/Acetaminophen 5/325 mg Tab PO PRN (23:31)
[2018-07-29 00:53] VITALS: RESP 20
[2018-07-29] MEDS: Oxycodone/Acetaminophen 5/325 mg Tab PO PRN (06:17)
[2018-07-29] MEDS ORDERED: Levothyroxine 100 MCG TAB PO SCH (06:30)
[2018-07-29] MEDS ORDERED: Lactated Ringer's 1,000 ML IV ONE (07:01)
[2018-07-29] MEDS ORDERED: Enoxaparin 40 mg Syringe SC SCH (10:00)
[2018-07-29 11:17] LABS: HEMOGLOBIN 15.1 g/dL (12.0-18.0); MEAN CELL VOLUME 98.7 fL (80.0-94.0); MEAN CORPUSCULAR HEMOGLOBIN 32.8 pg (27.0-31.0); MEAN CORPUSCULAR HGB CONC 33.2 g/dL (33.0-37.0); MEAN PLATELET VOLUME 7.6 fL (7.2-11.7); RBC 4.62 Mil/uL (4.40-5.90); RED CELL DISTRIBUTION WIDTH 13.6 % (11.5-14.5)
[2018-07-29 11:21] LABS: BLOOD UREA NITROGEN 16 mg/dL (9-20); CALCIUM 8.9 mg/dl (8.6-10.4); GFR NON-AFRICAN AMERICAN > 60
[2018-07-29 11:26] LABS: WHITE BLOOD COUNT 15.3 K/uL (4.8-10.8)
--- NOTE | 2018-07-29 14:58 | CP.PCM.DIS ---
Provider - Provider Date of Admission: 07/28/18 17:55 Attending physician: Salazar Bailey MD Time Spent in preparation of Discharge (in minutes): 45 Hospital Course - Lab Results Lab Results: Most Recent Lab Values WBC 15.3 K/uL (4.8-10.8) H D 07/29/18 10:59 RBC 4.62 Mil/uL (4.40-5.90) 07/29/18 10:59 Hgb 15.1 g/dL (12.0-18.0) 07/29/18 10:59 Hct 45.6 % (35.0-51.0) 07/29/18 10:59 MCV 98.7 fL (80.0-94.0) H 07/29/18 10:59 MCH 32.8 pg (27.0-31.0) H 07/29/18 10:59 MCHC 33.2 g/dL (33.0-37.0) 07/29/18 10:59 RDW 13.6 % (11.5-14.5) 07/29/18 10:59 Plt Count 158 K/uL (130-400) 07/29/18 10:59 MPV 7.6 fL (7.2-11.7) 07/29/18 10:59 Sodium 135 mmol/L (132-148) 07/29/18 10:59 Potassium 3.9 mmol/L (3.6-5.2) 07/29/18 10:59 Chloride 99 mmol/L (98-107) 07/29/18 10:59 Carbon Dioxide 27 mmol/L (22-30) 07/29/18 10:59 Anion Gap 13 (10-20) 07/29/18 10:59 BUN 16 mg/dL (9-20) 07/29/18 10:59 Creatinine 0.7 mg/dL (0.8-1.5) L 07/29/18 10:59 Est GFR ( Amer) > 60 07/29/18 10:59 Est GFR (Non-Af Amer) > 60 07/29/18 10:59 Random Glucose 113 mg/dL (75-110) H D 07/29/18 10:59 Calcium 8.9 mg/dl (8.6-10.4) 05/30/19 10:59 - Hospital Course Hospital Course: 73yo M who was brought in via SDS for robotic b/l inguinal hernia repair and open umbilical hernia repair. Post-operatively, patient started to complain of abdominal pain and was admitted overnight for observation. He had some urinary retention which was improved after administration of flomax. Patient obtained a physical therapy and occupational therapy evaluation and was recommended for home with services. Social Work helped set up the patient for discharge home with services and the patient was cleared home for discharge. Prescriptions given for discharge: 1) Percocet 2) Colace 3) Miralax Discharge Exam - Head Exam Head Exam: ATRAUMATIC, NORMAL INSPECTION, NORMOCEPHALIC - Eye Exam Eye Exam: EOMI, Normal appearance. absent: Scleral icterus - Respiratory Exam Respiratory Exam: NORMAL BREATHING PATTERN, UNREMARKABLE. absent: Accessory M uscle Use - Cardiovascular Exam Cardiovascular Exam: RRR. absent: JVD - GI/Abdominal Exam GI & Abdominal Exam: Soft. absent: Distended, Firm, Guarding, Rebound Additional comments: Mild antwon-incisional tenderness. Dressings clean, dry and intact. - Extremities Exam Extremities exam: normal inspection - Neurological Exam Neurological exam: Alert, Oriented x3 - Psychiatric Exam Psychiatric exam: Normal Affect, Normal Mood - Skin Skin Exam: Dry, Intact, Normal Color, Warm Discharge Plan - Follow Up Plan Condition: GOOD Disposition: HOME/ ROUTINE Additional Instructions: Cleared for discharge home. [facility] eval for home with services 1) Follow up with Dr. Bailey in office. Call for appointment 2) Take pain meds as prescribed sparingly 3) Use bowel regimen as ordered 4) Resume all home meds 5) No heavy lifting (>15 lbs) for at least 4 weeks 6) Maintain dressing for 5 days. Okay to shower (keep dressing clean and dry, cover with plastic) 7) Return to ED with any concerning findings. Referrals: Salazar Bailey MD [Staff Provider] -
[2018-07-29 16:30] VITALS: BP 97/61; PULSE 68; TEMP 98.7; O2SAT 97
--- NOTE | 2018-08-01 03:01 | OP ---
PROCEDURE DATE: 07/28/2018 PREOPERATIVE DIAGNOSES: 1. Bilateral inguinal hernia. 2. Lower abdominal pain. POSTOPERATIVE DIAGNOSES: 1. Bilateral inguinal hernia. 2. Small umbilical hernia. PROCEDURES DONE: 1. Robotic bilateral inguinal hernia repair with a mesh. 2. Open umbilical hernia repair with primary closure. 3. Laparoscopic bilateral transversus abdominis plane block placement. SURGEON: Salazar Bailey MD ASSISTANTS: DOMITILA Delatorre; and Salomon Lockett DO. ANESTHESIA: General endotracheal tube anesthesia. ESTIMATED BLOOD LOSS: Around 10 mL. DRAINS: None. PATHOLOGY: None. COMPLICATIONS: None. INTRAOPERATIVE FINDINGS: The patient had bilateral inguinal hernia and the patient also had small umbilical hernia, approximately 1 x 1 cm in size. DESCRIPTION OF PROCEDURE: On intraoperative steps, this is a 73-year-old male, who was diagnosed with bilateral inguinal hernia, and the patient was consented for robotic bilateral inguinal hernia repair with a mesh, brought to the OR, placed supine on the operating table. After induction of the anesthesia, the abdomen was prepped and draped in usual sterile fashion. Supraumbilical transverse incision was made using the open technique. Peritoneal cavity was entered and Pneumo was created. The patient was found to have umbilical hernia and a port was placed through the umbilical hernial defect, and after that, another 3-8 mm port were placed. Robot was brought in. Camera arm as well as arm 1 and arm 2 were docked, and the peritoneum was incised from the left ASIS up to the right ASIS, and in the midline, the dissection was carried down deep up to the space of Retzius. Laterally, on the right side, the peritoneum reflection was dissected off the abdominal wall. The vas deferens and the spermatic cord vessels were . Hernial sac and content were reduced back into the peritoneal cavity. Inferior dissection was done up to the pelvic brim, and on the left side, a similar dissection was done. The left side peritoneal reflection was dissected off the abdominal wall, and vas deferens and spermatic cord vessels were . Indirect hernial sac was reduced back into the pelvic cavity. The patient also had a direct hernia. The inferior dissection was done up to the pelvic brim and now, the right and left anatomical mesh was placed. After proper placement of the both mesh, the peritoneum was sutured with a 0-Vicryl as well as a 3-0 PDS continuous suture. Now, the procedure was converted to laparoscopic, and the laparoscopic bilateral TAP block was given. The 30:30 mL of Exparel with saline was injected into the transverse abdominis muscle plane area, and after proper TAP block, all the ports were taken out under vision. Pneumo was deflated. The umbilical port site had hernia, and hernial sac and content were dissected, and it was sent off the table for the pathology. Hernial defect was closed with 0-Prolene interrupted multiple suture, and after proper primary hernial repair, all the wounds were closed in 2 layers, subcutaneous with 2-0 Vicryl, and skin with 4-0 Monocryl and dry sterile dressing was applied. The patient tolerated the procedure well. Count of instrument and gauze was correct. There were no apparent complications. The patient was extubated in the OR and sent to the postanesthesia care unit in stable condition. Salazar Bailey MD
== END 2018-07-29 17:04 | disposition home or self-care (01) ==
LOC: C.SDS 09:59 → C.9S 17:55 → C.6T 20:05
PROVIDERS: ADMIT Surgery Surgical Critical Care; ATTEND Surgery Surgical Critical Care
DX: K40.20 Bilateral inguinal hernia, without obstruction or gangrene, not specified as recurrent (principal); K42.9 Umbilical hernia without obstruction or gangrene; R33.9 Retention of urine, unspecified; I25.10 Atherosclerotic heart disease of native coronary artery without angina pectoris; Z95.1 Presence of aortocoronary bypass graft; I11.9 Hypertensive heart disease without heart failure
CPT/HCPCS: 36415; 49650; 64488; 80048; 85027; 88302; 96372; 96374; 97116; 97162; 97166; C1781; G0378; G8978; G8979; G8987; G8988; J0690; J1100; J1170; J1650; J2001; J2250; J2405; J2710; J3010; J7120